=== PATIENT | female | born 1975 | race Caucasian/White ===

== ENCOUNTER 2017-04-29 21:51 | Emergency (ER) | payer OTHER ==
[~2017-04-29] VITALS: Ht 162.6 cm; Wt 117.0 kg
[~2017-04-29 21:51] MED LIST: FLUO10; GABA300; GI COCKTAIL PO; LOSHYD; PRAV20 PO; ZESTORETIC 20-121 EA
[2017-04-29] MEDS ORDERED: Flonase 0.05% N16 GM (23:14)
[2017-04-29] MEDS ORDERED: NEOPOLHCSU RIGHTEAR (23:14)
[2017-04-29] MEDS ORDERED: Sudogest30 MG PO (23:14)
== END 2017-04-29 23:42 | disposition home or self-care (01) ==
LOC: ER 21:51
DX: H60.91 Unspecified otitis externa, right ear (principal); H69.81 Other specified disorders of Eustachian tube, right ear; Z91.040 Latex allergy status
CPT/HCPCS: 99283

== ENCOUNTER 2017-05-25 15:43 | Emergency (ER) | payer OTHER ==
[~2017-05-25] VITALS: Ht 162.6 cm; Wt 108.4 kg
[~2017-05-25 15:43] MED LIST changes: +Flonase 0.05% N16 GM; +NEOPOLHCSU RIGHTEAR; +Sudogest30 MG PO
[2017-05-25] MEDS ORDERED: CYCL10 PO (16:13)
[2017-05-25] MEDS ORDERED: Norco 5-325 Ta1 EACH PO (16:13)
== END 2017-05-25 16:17 | disposition home or self-care (01) ==
LOC: ER 15:43
DX: M54.6 Pain in thoracic spine (principal); Z91.040 Latex allergy status
CPT/HCPCS: 99283

== ENCOUNTER → 2019-02-15 | Outpatient (CLI) | payer OTHER ==
[~2019-02-15] MED LIST changes: +CYCL10 PO; +Norco 5-325 Ta1 EACH PO
== END | disposition home or self-care (01) ==
LOC: LAB 16:46 → LAB SHORT 16:46
DX: R35.0 Frequency of micturition (principal)
CPT/HCPCS: 87077; 87086; 87186

== ENCOUNTER 2019-08-10 19:44 | Emergency (ER) | payer OTHER ==
[~2019-08-10] VITALS: Ht 162.6 cm; Wt 95.2 kg
== END 2019-08-10 22:37 | disposition home or self-care (01) ==
LOC: ER 19:44
DX: S00.03XA Contusion of scalp, initial encounter (principal); I10 Essential (primary) hypertension; Z91.040 Latex allergy status; W22.8XXA Striking against or struck by other objects, initial encounter
CPT/HCPCS: 70450; 99284-25; A9270

== ENCOUNTER → 2019-08-31 | Outpatient (CLI) | payer OTHER ==
[2019-08-31 13:30] LABS: Alanine Aminotransfer (ALT/SGP 38 U/L (12-78); Albumin, Blood 3.7 g/dL (3.4-5.0); Alk Phos 105 U/L (50-136); Anion Gap 5 mmol/L (6-16); Aspartate Aminotrans (AST/SGOT 15 U/L (12-37); Bilirubin, Total 0.5 mg/dL (0.1-1.0); Blood Urea Nitrogen 10 mg/dL (8-24); CO2, Blood 27 mmol/L (21-32); Calcium, Blood 9.3 mg/dL (8.5-10.1); Chloride, Blood 107 mmol/L (98-108); Creatinine, Blood 0.83 mg/dL (0.40-1.00); Globulin, Blood 3.8 g/dL (2.2-4.0); Glomerular Filtration Rate >60 (60-); Glucose, Blood 104 mg/dL (70-99); Potassium, Blood 4.1 mmol/L (3.5-5.5); Sodium, Blood 139 mmol/L (136-145); Total Protein, Blood 7.5 g/dL (6.4-8.2)
== END | disposition home or self-care (01) ==
LOC: LAB 12:21 → LAB SHORT 12:21
PROVIDERS: Nurse Practitioner Family
DX: Z00.01 Encounter for general adult medical examination with abnormal findings (principal); F41.9 Anxiety disorder, unspecified
CPT/HCPCS: 80053; 84443

== ENCOUNTER 2020-08-20 05:57 | Emergency (ER) | payer OTHER ==
[~2020-08-20] VITALS: Ht 162.6 cm; Wt 99.8 kg
[~2020-08-20 05:57] MED LIST changes: +ACETAMINOPHEN500 MG PO; +AMIT10 PO; +KETO10 PO
[2020-08-20] MEDS ORDERED: HYDR1TAB94 PO (07:12)
== END 2020-08-20 07:28 | disposition home or self-care (01) ==
LOC: ER 05:57
DX: M25.571 Pain in right ankle and joints of right foot (principal); Z91.040 Latex allergy status
CPT/HCPCS: 29515; 73610; 99283-25; A9270; L1906

== ENCOUNTER 2021-06-13 18:36 | Emergency (ER) | payer OTHER ==
[~2021-06-13] VITALS: Ht 162.6 cm; Wt 101.2 kg
[~2021-06-13 18:36] MED LIST changes: +HYDR1TAB94 PO
== END 2021-06-13 22:20 | disposition home or self-care (01) ==
LOC: ER 18:36
DX: S63.285A Dislocation of proximal interphalangeal joint of left ring finger, initial encounter (principal); X58.XXXA Exposure to other specified factors, initial encounter
CPT/HCPCS: 26770; 73140; 99283-25

== ENCOUNTER → 2021-06-30 | Outpatient (CLI) | payer OTHER ==
[2021-06-30 20:11] LABS: Follicle Stimulating Hormone 45.8 mIU/ml; Luteinizing Hormone 33.7 mIU/ml
== END ==
LOC: LAB SHORT 18:24
PROVIDERS: Registered Nurse Community Health
DX: N95.1 Menopausal and female climacteric states (principal); N93.9 Abnormal uterine and vaginal bleeding, unspecified
CPT/HCPCS: 83001; 83002

== ENCOUNTER 2025-04-02 16:23 | Emergency (ER) | payer OTHER ==
[~2025-04-02] VITALS: Ht 162.6 cm; Wt 93.9 kg
[2025-04-02 16:29] VITALS: BP 169/108
[2025-04-02] MEDS ORDERED: RX Prepack 6 Tabs Oxycodone 5mg UD ONE (20:20)
== END 2025-04-02 20:51 | disposition home or self-care (01) ==
LOC: ER 16:23
DX: S61.052A Open bite of left thumb without damage to nail, initial encounter (principal); S51.852A Open bite of left forearm, initial encounter; S61.257A Open bite of left little finger without damage to nail, initial encounter; Z91.040 Latex allergy status; W54.0XXA Bitten by dog, initial encounter
CPT/HCPCS: 12001; 73090; 99283-25; A9270